=== PATIENT | female | born 1960 | race African-American/Black ===

== ENCOUNTER 2019-08-19 14:37 | Inpatient (IN) | payer MEDICAID ==
[~2019-08-19] VITALS: Ht 170.2 cm; Wt 88.9 kg
[~2019-08-19 14:37] MED LIST: LISI40TA4 MT
[2019-08-19] MEDS ORDERED: ONDANSETRON HCL 4MG/2ML INJ IV STA ×2 (16:39→22:21)
[2019-08-19 17:00] LABS: BASOPHILS % 0.8 % (0.0-2.0); EOSINOPHILS % 1.3 % (0.0-5.0); HEMATOCRIT. 43.2 % (36.0-48.0); LYMPHOCYTES % 31.6 % (20.0-50.0); MEAN CORPUSCULAR HEMOGLOBIN 27.3 pg (28.0-32.0); MEAN CORPUSCULAR VOLUME 84.2 fL (81.0-99.0); MEAN PLATELET VOLUME 8.4 fl (7.4-10.4); MONOCYTES % 6.8 % (2.0-8.0); NEUTROPHILS % 59.5 % (40.0-76.0); PLATELET 277 x1000/uL (130-400); RED BLOOD CELL COUNT 5.13 mill/uL (4.2-5.4); RED CELL DISTRIBUTION WIDTH 15.2 % (11.6-14.6)
[2019-08-19 17:07] LABS: CHLORIDE 107 mEq/L (98-107)
[2019-08-19 17:13] LABS: ETHANOL BLOOD < 10 mg/dL
[2019-08-19 18:30] LABS: CLARITY URINE CLEAR (CLEAR); COLOR URINE YELLOW (YELLOW); KETONES URINE TRACE (NEGATIVE); LEUKOCYTE ESTERASE URINE NEGATIVE (NEGATIVE); NITRITE URINE NEGATIVE (NEGATIVE); OCCULT BLOOD URINE NEGATIVE (NEGATIVE); PROTEIN URINE 1+ (NEGATIVE)
[2019-08-19 18:44] LABS: *AMPHETAMINES SCREEN URINE NEGATIVE (NEGATIVE); *BARBITURATES SCREEN URINE NEGATIVE (NEGATIVE); *BENZODIAZEPINES SCREEN URINE NEGATIVE (NEGATIVE); *COCAINE SCREEN URINE NEGATIVE (NEGATIVE); METHADONE URINE SCREEN NEGATIVE (NEGATIVE)
[2019-08-19 18:45] LABS: CANNABINOID URINE SCREEN NEGATIVE (NEGATIVE); OPIATES URINE SCREEN NEGATIVE (NEGATIVE); PHENCYCLIDINE URINE SCREEN NEGATIVE (NEGATIVE)
[2019-08-19] MEDS ORDERED: METOCLOPRAMIDE HCL 10MG/2ML VIAL IV ONE (20:00)
[2019-08-19] MEDS ORDERED: SODIUM CHLORIDE 0.9% 500 ML IV ONE (20:00)
[2019-08-19] MEDS ORDERED: DIPHENHYDRAMINE 50MG/ML VIAL IV ONE (20:00)
[2019-08-19] MEDS ORDERED: ONDANSETRON HCL 4MG/2ML INJ IV PRN (22:30)
[2019-08-19] MEDS ORDERED: CLONIDINE 0.1MG TABLET PO PRN (22:30)
[2019-08-19] MEDS ORDERED: DEXTROSE 50% WATER 50ML SYRINGE IV PRN (22:30)
[2019-08-19] MEDS ORDERED: IOHEXOL-300 100 ML BOTTLE ONE (22:30)
[2019-08-19] MEDS ORDERED: IOHEXOL-350 100 ML BOTTLE ONE (22:31)
[2019-08-20 05:22] LABS: BASOPHILS % 1.1 % (0.0-2.0); EOSINOPHILS % 1.6 % (0.0-5.0); HEMATOCRIT. 42.1 % (36.0-48.0); HEMOGLOBIN. 13.9 g/dL (12.0-16.0); LYMPHOCYTES % 34.1 % (20.0-50.0); MEAN CORPUSCULAR HEMOGLOBIN 27.9 pg (28.0-32.0); MEAN CORPUSCULAR VOLUME 84.5 fL (81.0-99.0); MEAN PLATELET VOLUME 8.4 fl (7.4-10.4); NEUTROPHILS % 56.2 % (40.0-76.0); PLATELET 266 x1000/uL (130-400); RED BLOOD CELL COUNT 4.98 mill/uL (4.2-5.4); RED CELL DISTRIBUTION WIDTH 15.1 % (11.6-14.6)
[2019-08-20 05:25] LABS: CHLORIDE 108 mEq/L (98-107)
[2019-08-20] MEDS ORDERED: INSULIN LISPRO 100 UNITS/ML SUBCUT SCH (08:20)
[2019-08-20] MEDS ORDERED: CLOPIDOGREL 75MG TABLET PO SCH ×2 (09:00→09:15)
[2019-08-20] MEDS ORDERED: BLOOD SUGAR DIAGNOSTIC STRIP TEST SCH (09:00)
[2019-08-20 09:44] VITALS: BP 139/76
[2019-08-20 10:00] VITALS: BP 139/76
[2019-08-20] MEDS ORDERED: CETI10TA10 MT (10:26)
[2019-08-20] MEDS ORDERED: SERTRALINE PO (10:26)
[2019-08-20] MEDS ORDERED: AMLO10TA80 MT (10:26)
[2019-08-20] MEDS ORDERED: ATOR40TA70 MT (10:26)
[2019-08-20] MEDS ORDERED: IBUP-2030 MT (10:26)
[2019-08-20] MEDS ORDERED: DOCU100T MT (10:26)
[2019-08-20] MEDS ORDERED: DICL75TA5 MT (10:26)
[2019-08-20] MEDS ORDERED: SITA100T11 MT (10:37)
[2019-08-20] MEDS ORDERED: INSU100I32 SQ (10:37)
[2019-08-20] MEDS ORDERED: TRAM50TA3 MT (10:37)
[2019-08-20] MEDS ORDERED: CYCL5TAB PO (10:37)
[2019-08-20] MEDS ORDERED: INSU100I28 SQ (10:37)
[2019-08-20] MEDS ORDERED: IBUP100T53 PO (10:37)
[2019-08-20] MEDS ORDERED: OMEP20CA14 MT (10:37)
[2019-08-20] MEDS ORDERED: ASPI-1158 MT (10:37)
[2019-08-20] MEDS ORDERED: LORA10TA7 MT (10:37)
[2019-08-20] MEDS ORDERED: ATEN-42 MT (10:37)
[2019-08-20] MEDS ORDERED: LISI40TA4 MT (10:37)
[2019-08-20] MEDS ORDERED: FLUT16SP15 BOTHNSTRLS (10:38)
[2019-08-20 12:00] VITALS: BP 133/84
[2019-08-20] MEDS: BLOOD SUGAR DIAGNOSTIC STRIP TEST SCH ×3 (12:35→21:29)
[2019-08-20] MEDS: INSULIN LISPRO 100 UNITS/ML SUBCUT SCH ×3 (12:44→21:33)
[2019-08-20] MEDS ORDERED: KETOROLAC 30MG/ML VIAL IV PRN (16:00)
[2019-08-20 16:13] VITALS: BP 135/78
[2019-08-20 20:00] VITALS: BP 142/87
[2019-08-20] MEDS ORDERED: ATORVASTATIN CALCIUM 40MG TABLET PO SCH ×2 (21:00)
[2019-08-20] MEDS ORDERED: ENOXAPARIN 40MG/0.4ML SYR SUBCUT SCH (21:00)
[2019-08-20] MEDS: ACETAMINOPHEN 325MG TABLET PO PRN (21:37)
[2019-08-20] MEDS: INSULIN GLARGINE UD 100 UNITS/ML SYR SUBCUT SCH (22:12)
[2019-08-21] VITALS (7 sets, daily range): BP systolic 127–164; BP diastolic 67–92
[2019-08-21] MEDS: INSULIN LISPRO 100 UNITS/ML SUBCUT SCH ×2 (06:43→12:36)
[2019-08-21] MEDS: BLOOD SUGAR DIAGNOSTIC STRIP TEST SCH ×2 (06:43→12:07)
[2019-08-21 07:32] LABS: BASOPHILS % 0.4 % (0.0-2.0); EOSINOPHILS % 2.4 % (0.0-5.0); HEMOGLOBIN. 12.5 g/dL (12.0-16.0); LYMPHOCYTES % 51.2 % (20.0-50.0); MEAN CORPUSCULAR HEMOGLOBIN 27.7 pg (28.0-32.0); MEAN CORPUSCULAR VOLUME 84.1 fL (81.0-99.0); MEAN PLATELET VOLUME 8.8 fl (7.4-10.4); MONOCYTES % 8.1 % (2.0-8.0); NEUTROPHILS % 37.9 % (40.0-76.0); PLATELET 241 x1000/uL (130-400); RED BLOOD CELL COUNT 4.52 mill/uL (4.2-5.4); RED CELL DISTRIBUTION WIDTH 14.9 % (11.6-14.6)
[2019-08-21 07:44] LABS: CHLORIDE 109 mEq/L (98-107)
[2019-08-21] MEDS ORDERED: PNEUMOCOCCAL 23-VAL P-SAC VAC 0.5 ML IM ONE (09:00)
[2019-08-21] MEDS: ACETAMINOPHEN 325MG TABLET PO PRN (09:30)
[2019-08-21] MEDS: INSULIN GLARGINE UD 100 UNITS/ML SYR SUBCUT SCH (09:34)
[2019-08-21] MEDS ORDERED: NAPROXEN 375MG TABLET PO PRN (10:00)
[2019-08-21] MEDS ORDERED: CLOP75TA4 MT (12:08)
[2019-08-21] MEDS ORDERED: CLONIDINE 0.1MG TABLET PO PRN (14:00)
[2019-08-21] MEDS ORDERED: INSULIN GLARGINE UD 100 UNITS/ML SYR SUBCUT SCH (22:00)
== END 2019-08-21 16:00 | disposition home health service (06) | DRG 45 ==
LOC: ER 14:37 → 5WST 21:12 → EDBEDREQ 21:15 → EDBEDREQTM 21:15 → ENRESERV 08-20 07:46 → ER 08-20 08:25 → 5WST 08-21 12:00
PROVIDERS: ADMIT Internal Medicine; ATTEND Internal Medicine
DX: I63.81 Other cerebral infarction due to occlusion or stenosis of small artery (principal); E44.1 Mild protein-calorie malnutrition; G43.909 Migraine, unspecified, not intractable, without status migrainosus; I10 Essential (primary) hypertension; E11.9 Type 2 diabetes mellitus without complications; G81.94 Hemiplegia, unspecified affecting left nondominant side; G56.00 Carpal tunnel syndrome, unspecified upper limb; G45.9 Transient cerebral ischemic attack, unspecified; E66.9 Obesity, unspecified; Z68.30 Body mass index [BMI] 30.0-30.9, adult; Z79.82 Long term (current) use of aspirin; Z82.49 Family history of ischemic heart disease and other diseases of the circulatory system; Z83.3 Family history of diabetes mellitus; Z90.710 Acquired absence of both cervix and uterus; Z88.2 Allergy status to sulfonamides; Z79.899 Other long term (current) drug therapy; Z79.4 Long term (current) use of insulin
CPT/HCPCS: 36415; 70496; 70498; 70551; 71045; 80048; 80053; 80061; 80305; 80320; 81003; 82962; 83605; 83880; 84484; 85025; 90732; 93005; 96374; 97162; 99285; J1200; J1650; J1815; J1885; J2405; J2765; J7040; Q9967; G0480